=== PATIENT | female | born 1940 | race Caucasian/White ===

== ENCOUNTER 2017-02-26 08:27 | Emergency (ER) | payer MEDICARE ==
[2010-04-03 06:50] VITALS: BMI 28.7
== END 2017-02-26 10:32 | disposition home or self-care (01) ==
LOC: D.ER 08:27
DX: S99.922A Unspecified injury of left foot, initial encounter (principal); X58.XXXA Exposure to other specified factors, initial encounter; Y93.89 Activity, other specified; Y92.89 Other specified places as the place of occurrence of the external cause; I10 Essential (primary) hypertension

== ENCOUNTER 2017-03-05 07:58 | Emergency (ER) | payer MEDICARE ==
[2010-04-03 06:50] VITALS: BMI 28.7
[2017-03-05 08:40] LABS: BASOPHILS 0 % (0-2); EOSINOPHILS 0.3 % (0-7); HEMATOCRIT 37.6 % (36.0-48.0); IMMATURE GRANULOCYTES 0.2 % (0-5); LYMPHOCYTES 24.3 % (15-50); MCH 24.4 pg (26.0-34.0); MCHC 31.9 g/dL (31.0-37.0); MCV 76.6 fL (80.0-100.0); MEAN PLATELET VOLUME 9.4 fL (7.4-10.4); MONOCYTES 14.1 % (2-11); NEUTROPHILS 61.1 % (40-80); RBC 4.91 10x6/uL (4.00-5.40); RDW 16.3 % (11.5-14.5)
[2017-03-05 08:41] LABS: PLATELET COUNT 330 10x3/uL (130-400)
== END 2017-03-05 09:32 | disposition home or self-care (01) ==
LOC: D.ER 07:58
PROVIDERS: Emergency Medicine
DX: S99.922A Unspecified injury of left foot, initial encounter (principal); X58.XXXA Exposure to other specified factors, initial encounter; Y93.89 Activity, other specified; Y92.89 Other specified places as the place of occurrence of the external cause; I10 Essential (primary) hypertension

== ENCOUNTER 2017-05-18 11:48 | Inpatient (IN) | payer MEDICARE, OTHER ==
[~2017-05-18] VITALS: Ht 170.2 cm; Wt 76.9 kg
[2017-05-18 12:32] VITALS: BP 113/38; BMI 25.2
[2017-05-18] MEDS ORDERED: PROZAC40 MG PO (12:48)
[2017-05-18] MEDS ORDERED: LISINOPRIL10 MG PO (12:48)
[2017-05-18] MEDS ORDERED: ESTRACE 0.5 MG0.5 MG PO (12:49)
[2017-05-18] MEDS ORDERED: PROTONIX40 MG PO (12:49)
[2017-05-18] MEDS ORDERED: NAPROSYN500 MG PO (12:50)
[2017-05-18] MEDS ORDERED: TYLENOL PM1 TAB PO (12:50)
[2017-05-18 14:26] LABS: BASOPHILS 0.2 % (0-2); EOSINOPHILS 0.7 % (0-7); HEMATOCRIT 23.1 % (36.0-48.0); IMMATURE GRANULOCYTES 0.2 % (0-5); LYMPHOCYTES 34.3 % (15-50); MCHC 27.7 g/dL (31.0-37.0); MCV 65.6 fL (80.0-100.0); MEAN PLATELET VOLUME 9.6 fL (7.4-10.4); MONOCYTES 20.9 % (2-11); NEUTROPHILS 43.7 % (40-80); PLATELET COUNT 328 10x3/uL (130-400); RBC 3.52 10x6/uL (4.00-5.40); RDW 18.7 % (11.5-14.5); WBC 5.8 10x3/uL (4.8-10.8)
[2017-05-18 14:32] LABS: HEMOGLOBIN 6.4 g/dL (12-16); MCH 18.2 pg (26.0-34.0)
[2017-05-18 14:37] LABS: ALBUMIN 3.6 g/dL (3.4-5.0); ANION GAP 15.6 mmol/L (8-16); BILIRUBIN - TOTAL 0.41 mg/dL (0.2-1.3); CALCIUM 9.1 mg/dL (8.5-10.1); CARBON DIOXIDE 23.6 mmol/L (21.0-32.0); CREATININE - SERUM 0.8 mg/dL (0.6-1.3); POTASSIUM - SERUM 4.2 mmol/L (3.5-5.1); PROTEIN - SERUM 7.1 g/dL (6.4-8.2)
[2017-05-18 14:39] LABS: % SATURATION 2 % (15-55); IRON 11 ug/dl (35-150); TOTAL IRON BIND CAPACITY 482 ug/dl (260-445)
[2017-05-18 14:42] LABS: UNSAT IRON BIND CAPACITY 471 ug/dl (150-375)
[2017-05-18 15:12] VITALS: BP 113/46
[2017-05-18 20:28] VITALS: BP 122/40
[2017-05-19 01:41] VITALS: BP 140/50
[2017-05-19 05:16] VITALS: BP 144/50
[2017-05-19 06:19] LABS: BASOPHILS 0.4 % (0-2); EOSINOPHILS 1.2 % (0-7); HEMATOCRIT 27.3 % (36.0-48.0); IMMATURE GRANULOCYTES 0.2 % (0-5); LYMPHOCYTES 32.6 % (15-50); MCH 20.9 pg (26.0-34.0); MCHC 29.7 g/dL (31.0-37.0); MONOCYTES 28.5 % (2-11); NEUTROPHILS 37.1 % (40-80); RBC 3.87 10x6/uL (4.00-5.40); RDW 20.5 % (11.5-14.5); WBC 4.9 10x3/uL (4.8-10.8)
[2017-05-19 06:21] LABS: HEMOGLOBIN 8.1 g/dL (12-16); MCV 70.5 fL (80.0-100.0); PLATELET COUNT 261 10x3/uL (130-400)
[2017-05-19 06:42] LABS: ALBUMIN 2.9 g/dL (3.4-5.0); ALKALINE PHOSPHATASE 77 U/L (46-116); BILIRUBIN - TOTAL 0.47 mg/dL (0.2-1.3); CALCIUM 8.5 mg/dL (8.5-10.1); CARBON DIOXIDE 25.7 mmol/L (21.0-32.0); CHLORIDE - SERUM 104 mmol/L (98-107); CREATININE - SERUM 0.7 mg/dL (0.6-1.3); GLUCOSE 84 mg/dL (74-106); POTASSIUM - SERUM 4.2 mmol/L (3.5-5.1); PROTEIN - SERUM 6.2 g/dL (6.4-8.2); SODIUM 138 mmol/L (136-145); eGFR NON AFRICAN AMERICAN 86 mL/min (90-120)
[2017-05-19 06:44] LABS: ALT (SGPT) 24 U/L (10-68); CALC OSMOLALITY 278 mosm/kg (275-300); UREA NITROGEN 23 mg/dL (7-18)
[2017-05-19 09:50] VITALS: BP 165/49
[2017-05-19 10:11] LABS: APPEARANCE CLOUDY (CLEAR); BILIRUBIN NEGATIVE (NEGATIVE); COLOR DK YELLOW (YELLOW); GLUCOSE NEGATIVE (NEGATIVE); KETONE NEGATIVE (NEGATIVE); NITRITE NEGATIVE (NEGATIVE); PROTEIN NEGATIVE (NEGATIVE)
[2017-05-19 10:12] LABS: AMORPHOUS SEDIMENT >1+ /lpf (NONE SEEN); BACTERIA MODERATE /hpf (NONE SEEN); EPITHELIAL CELLS RARE /hpf (0-5); MUCUS <1+ /lpf (NONE SEEN); RED CELLS - URINE NONE SEEN /hpf (0-5); WHITE CELLS - URINE NSEEN /hpf (0-5)
[2017-05-19 12:06] VITALS: BP 99/49
[2017-05-19 12:40] VITALS: BMI 25.7
[2017-05-19 17:27] VITALS: BP 177/52
[2017-05-19 19:48] VITALS: Ht 170.2 cm; Wt 76.9 kg
[2017-05-19 21:06] VITALS: BP 174/94
[2017-05-20 00:58] VITALS: BP 138/68
[2017-05-20 04:00] VITALS: BP 156/57
[2017-05-20 04:59] LABS: BASOPHILS 0.2 % (0-2); EOSINOPHILS 1.7 % (0-7); HEMATOCRIT 26.8 % (36.0-48.0); HEMOGLOBIN 7.8 g/dL (12-16); IMMATURE GRANULOCYTES 0.4 % (0-5); LYMPHOCYTES 45.8 % (15-50); MCH 20.5 pg (26.0-34.0); MCHC 29.1 g/dL (31.0-37.0); MCV 70.3 fL (80.0-100.0); MEAN PLATELET VOLUME 9.8 fL (7.4-10.4); MONOCYTES 23.8 % (2-11); NEUTROPHILS 28.1 % (40-80); PLATELET COUNT 253 10x3/uL (130-400); RBC 3.81 10x6/uL (4.00-5.40); RDW 21.2 % (11.5-14.5); WBC 5.4 10x3/uL (4.8-10.8)
[2017-05-20 05:16] LABS: APTT 39.7 SECONDS (22.8-39.4); INR 1.11 (0.85-1.17); PROTIME 13.9 SECONDS (11.6-15.0)
[2017-05-20 05:22] LABS: ALBUMIN 2.7 g/dL (3.4-5.0); ALKALINE PHOSPHATASE 75 U/L (46-116); ALT (SGPT) 22 U/L (10-68); BILIRUBIN - TOTAL 0.29 mg/dL (0.2-1.3); CALC OSMOLALITY 277 mosm/kg (275-300); CALCIUM 8.3 mg/dL (8.5-10.1); CARBON DIOXIDE 27.3 mmol/L (21.0-32.0); CHLORIDE - SERUM 105 mmol/L (98-107); CREATININE - SERUM 0.7 mg/dL (0.6-1.3); GLUCOSE 83 mg/dL (74-106); POTASSIUM - SERUM 4.4 mmol/L (3.5-5.1); PROTEIN - SERUM 5.9 g/dL (6.4-8.2); SODIUM 138 mmol/L (136-145); THYROID STIMULATING HORMONE 1.54 uIU/mL (0.36-3.74); UREA NITROGEN 20 mg/dL (7-18); eGFR NON AFRICAN AMERICAN 86 mL/min (90-120)
[2017-05-20 08:48] VITALS: BP 144/45
[2017-05-20 09:16] LABS: FOLATE (FOLIC ACID) - SERUM 10.9 ng/mL (>3.0)
[2017-05-20 11:38] VITALS: BP 107/71
[2017-05-20 15:09] VITALS: BP 161/42
[2017-05-20 19:00] VITALS: BP 131/46
[2017-05-21 04:00] VITALS: BP 123/51
[2017-05-21 08:10] VITALS: BP 166/61
[2017-05-21 10:51] LABS: BASOPHILS 0.2 % (0-2); EOSINOPHILS 1.6 % (0-7); HEMATOCRIT 35.1 % (36.0-48.0); IMMATURE GRANULOCYTES 0.5 % (0-5); LYMPHOCYTES 28.9 % (15-50); MCH 23.1 pg (26.0-34.0); MCHC 31.3 g/dL (31.0-37.0); MCV 73.7 fL (80.0-100.0); MEAN PLATELET VOLUME 9.5 fL (7.4-10.4); MONOCYTES 16.7 % (2-11); NEUTROPHILS 52.1 % (40-80); PLATELET COUNT 244 10x3/uL (130-400); RBC 4.76 10x6/uL (4.00-5.40); WBC 6.1 10x3/uL (4.8-10.8)
[2017-05-21 11:04] LABS: ALKALINE PHOSPHATASE 93 U/L (46-116); ALT (SGPT) 24 U/L (10-68); BILIRUBIN - TOTAL 0.45 mg/dL (0.2-1.3); CALC OSMOLALITY 275 mosm/kg (275-300); CALCIUM 8.4 mg/dL (8.5-10.1); CARBON DIOXIDE 26.3 mmol/L (21.0-32.0); CHLORIDE - SERUM 101 mmol/L (98-107); CREATININE - SERUM 0.7 mg/dL (0.6-1.3); GLUCOSE 125 mg/dL (74-106); POTASSIUM - SERUM 3.8 mmol/L (3.5-5.1); PROTEIN - SERUM 6.7 g/dL (6.4-8.2); SODIUM 137 mmol/L (136-145); UREA NITROGEN 14 mg/dL (7-18); eGFR NON AFRICAN AMERICAN 86 mL/min (90-120)
[2017-05-21 12:04] VITALS: BP 148/46
== END 2017-05-21 14:23 | disposition home or self-care (01) | DRG 812 ==
LOC: D.M2 11:48
PROVIDERS: Family Medicine; Internal Medicine Gastroenterology
PROC: 0DB78ZX Excision of Stomach, Pylorus, Via Natural or Artificial Opening Endoscopic, Diagnostic (ICD-10-PCS; 2017-05-19)
PROC: 0DB98ZX Excision of Duodenum, Via Natural or Artificial Opening Endoscopic, Diagnostic (ICD-10-PCS; principal; 2017-05-19 17:00)
DX: D50.9 Iron deficiency anemia, unspecified (principal); K29.00 Acute gastritis without bleeding; K44.9 Diaphragmatic hernia without obstruction or gangrene; I10 Essential (primary) hypertension; K21.9 Gastro-esophageal reflux disease without esophagitis; F32.9 Major depressive disorder, single episode, unspecified

== ENCOUNTER 2020-07-18 07:40 | Day surgery (SDC) | payer MEDICARE, OTHER ==
[~2020-07-18] VITALS: Ht 170.2 cm; Wt 79.5 kg
[~2020-07-18 07:40] MED LIST: ESTRACE 0.5 MG0.5 MG PO; LISINOPRIL10 MG PO; NAPROSYN500 MG PO; PROTONIX40 MG PO; PROZAC40 MG PO; TYLENOL PM1 TAB PO
[2020-07-18 08:31] LABS: ANION GAP 12.4 mmol/L (8-16); CALCIUM 8.5 mg/dL (8.5-10.1); CARBON DIOXIDE 27.7 mmol/L (21.0-32.0); CREATININE - SERUM 0.8 mg/dL (0.6-1.3); POTASSIUM - SERUM 4.1 mmol/L (3.5-5.1)
[2020-07-18 08:50] LABS: BASOPHILS 0.2 % (0-2); EOSINOPHILS 0.2 % (0-7); HEMATOCRIT 29.7 % (36.0-48.0); HEMOGLOBIN 9.3 g/dL (12-16); LYMPHOCYTE ABS# 1.71 10x3/uL (1.18-3.74); LYMPHOCYTES 39.4 % (15-50); MCHC 31.3 g/dL (31.0-37.0); MCV 89.5 fL (80.0-100.0); MEAN PLATELET VOLUME 10.3 fL (7.4-10.4); MONOCYTES 16.1 % (2-11); NEUTROPHIL ABS# 1.91 10x3/uL (1.56-6.13); NEUTROPHILS 44.1 % (40-80); PLATELET COUNT 205 10x3/uL (130-400); RBC 3.32 10x6/uL (4.00-5.40); RDW 14.7 % (11.5-14.5); WBC 4.3 10x3/uL (4.8-10.8)
[2020-07-18 09:21] VITALS: BP 139/59; Ht 170.2 cm; Wt 79.5 kg
--- NOTE | 2020-07-18 17:15 | NUR ---
DISCUSSED DISCHARGE INSTRUCTIONS WITH PT AND HOLDING METHOTREXATE, NSAIDS AND ASA. PT VERBALIZED AN UNDERSTANDING. IV D/C'D WITH CANNULA INTACT, PRESSURE HELD AND DRSG PLACED
== END 2020-07-18 11:28 | disposition home or self-care (01) ==
LOC: D.OPS 07:40
PROVIDERS: Anesthesiology; ATTEND Surgery
DX: K31.7 Polyp of stomach and duodenum (principal); K92.2 Gastrointestinal hemorrhage, unspecified